=== PATIENT | male | born 1970 | race Caucasian/White ===

== ENCOUNTER 2022-08-18 09:54 | Outpatient (RCR) | payer OTHER ==
[~2022-08-18 09:54] MED LIST: AMOXICILLIN 50500 MG PO; ASPIRIN 81M81 MG/TA2 PO; BIAXIN 500MG T500 MG PO; BRILINTA90 MG PO; CANA300T PO; CLOMID50 MG PO; ERGOCALCIFER50000 IU PO; GLUCOPHAGE500 MG/TAB PO; LANTUS100 U/ML SQ; LIPITOR 40MG TA40 MG PO; LIPITOR 80MG80 MG PO; MELATONIN5 M1 PO; NITROSTAT0.4 MG/TAB SL; PRIL40 PO; PRILOSEC 20MG20 MG PO; TOPROL XL 25MG25 MG PO; TOUJEO300 U/ML SQ; TRULICITY1.5 MG/0.5 SQ; VASCEPA0.5 GM PO
== END 2022-08-20 ==
LOC: WSOH
DX: L03.011 Cellulitis of right finger (principal); E78.00 Pure hypercholesterolemia, unspecified; I10 Essential (primary) hypertension; E11.9 Type 2 diabetes mellitus without complications; F41.8 Other specified anxiety disorders; Y99.0 Civilian activity done for income or pay